=== PATIENT | female | born 1980 | race Caucasian/White ===

== ENCOUNTER 2017-11-18 15:15 | Emergency (ER) | payer OTHER ==
[~2017-11-18] VITALS: Ht 167.6 cm; Wt 71.7 kg
[2017-11-18 15:36] VITALS: TEMP 36.8; Ht 167.6 cm; Wt 71.7 kg
[2017-11-18] MEDS ORDERED: [UNRECOGNIZED DRUG - REMARK] PO (15:51)
[2017-11-18 15:53] LABS: BASO % 1.1 %; EOS ABS # 0.09 K/uL (0-0.5); HEMATOCRIT 39.2 % (37-47); IG# 0.02 K/uL (0.00-0.02); LYMPH % 26.1 %; LYMPH ABS # 2.39 K/uL (1.2-3.4); MEAN CELL VOLUME 88.1 fL (80-100); MEAN CORPUSCULAR HEMOGLOBIN 29.2 pg (25-34); MEAN CORPUSCULAR HGB CONC 33.2 g/dl (32-36); MEAN PLATELET VOLUME 9.6 fL (7.4-10.4); MONO % 7.3 %; MONO ABS # 0.67 K/uL (0.11-0.59); NEUT % 64.3 %; PLATELET COUNT 247 K/uL (130-400); RED CELL DISTRIBUTION WIDTH CV 14.8 % (11.5-14.5); RED CELL DISTRIBUTION WIDTH SD 47.6 fL (36.4-46.3); WHITE BLOOD COUNT 9.17 K/uL (4.8-10.8)
--- NOTE | 2017-11-18 15:59 | DIAGNOSTIC IMAGING REPORT ---
CHEST ONE VIEW PORTABLE CLINICAL HISTORY: CHEST PAIN COMPARISON STUDY: No previous studies for comparison. FINDINGS: Lung volumes are normal. Lungs are clear. There is no pneumothorax or pleural effusion. There is no evidence of pneumomediastinum. Cardiomediastinal silhouette is normal. Pulmonary vascularity is normal. IMPRESSION: No acute cardiopulmonary findings. Electronically signed by: Trever Keane M.D. 11/18/2017 3:58 PM Dictated Date/Time: 11/18/2017 3:57 PM
[2017-11-18 16:02] LABS: ALBUMIN 4.4 gm/dl (3.4-5.0); CALCIUM 8.8 mg/dl (8.5-10.1); CREATININE 0.93 mg/dl (0.60-1.20); POTASSIUM 3.6 mmol/L (3.5-5.1)
[2017-11-18 16:05] LABS: TOTAL PROTEIN 8.4 gm/dl (6.4-8.2)
[2017-11-18 17:54] VITALS: BP 112/63; PULSE 71; O2SAT 99
--- NOTE | 2017-11-18 23:45 | EMERGENCY ROOM VISIT NOTE ---
ED Visit Note First contact with patient: 15:29 Chief Complaint: Chest pain. History of Present Illness: Ms. Funes is a 37 year-old white female who ambulates into the ED complaining of chest pain. Historically patient reports she has no personal or family history heart disease. She denies risk factors for heart disease. She also denies any previous gastrointestinal disorders. Patient reports a gradual onset of left sternal chest pain that started approximately 2-3 hours ago. Since that time the pain has waxed and waned in intensity. The chest pain is currently described as achy sensation. She rates her discomfort 4/10. The pain is radiating down the left sternal border and into the epigastric area and into the subscapular area. When the pain reaches the abdomen and subscapular area become sharp in nature and she rates this discomfort 7/10. She has not identified any aggravating or alleviating factors related to either pain. She does report this pain started when she was eating; she reports a similar episode of pain a few weeks ago that was short-lived only approximately 10 minutes long and self resolved. She has not identified any aggravating or alleviating factors related to this discomfort. She has not taken any medication for this discomfort prior to arrival at the hospital. She denies fevers, chills, sweats, skin eruptions, skin color changes, upper respiratory tract symptoms, wheezing, cough shortness of breath, orthopnea, dependent edema, previous clots, claudication, cramping, recent surgery/ inactivity/extended travel, abdominal pain, nausea, vomiting, diarrhea, constipation, rectal bleeding, black/tarry stools, urinary symptoms, back/flank pain. Review of Systems: As noted above in history of present illness. All body systems were reviewed and found to be negative as noted above. Past Medical History: Patient denies. Current Medications: Patient denies. Allergies to Medications: Patient denies. Social History: Patient is currently employed; she lives with her family and feels safe in her home environment; she denies tobacco use. Physical Examination: Vital Signs: Date Time Temp Pulse Resp B/P (MAP) Pulse Ox O2 Delivery O2 Flow Rate FiO2 11/18/17 17:54 71 18 112/63 99 11/18/17 16:19 73 11/18/17 15:36 36.8 77 20 150/75 100 Room Air 11/18/17 15:33 36.8 77 20 11/18/17 15:28 56 18 150/75 100 Room Air GENERAL: 37-year-old female in mild moderate distress due to pain, nontoxic- appearing, afebrile and hemodynamically stable. NEUROLOGICAL: Awake, alert and oriented to person, place and time. Answering questions appropriately and following commands. Normal gait. Good hand eye coordination. SKIN: Warm, dry and pink. No soft tissue eruptions or trauma noted. HEENT: Atraumatic and normocephalic. PERRLA. Sclera white and conjunctiva pink. Oral cavity moist and pink. Pharynx is nonerythematous or edematous. Speech normal. No lymphadenopathy. Trachea midline. No jugular venous distention. No carotid bruits. BACK: No tenderness over the bony spine. No CVA tenderness. THORAX: Lungs sounds are clear to auscultation and equal bilaterally with symmetrical chest wall. No wheezing, rales or rhonchi. No crepitus, tenderness , subcutaneous air or deformities noted. HEART: Regular rate and rhythm. No gallops, rubs or murmurs are appreciated. No lifts, heaves or thrills. PMI is not displaced. ABDOMEN: Flat, soft and nontender. Positive bowel sounds in all quadrants. No guarding, rigidity or organomegaly. EXTREMITIES: Moves all extremities well on command and with purpose. All distal neurovascular statuses are intact and equal bilaterally. No dependent edema or calf tenderness/cords. ED Course: Patient is assessed as noted above. Since medication list was reviewed. Laboratory Testing: Test 11/18/17 15:36 11/18/17 15:52 11/18/17 16:30 11/18/17 17:12 Range/Units White Blood Count 9.17 4.8-10.8 K/uL Red Blood Count 4.45 4.2-5.4 M/uL Hemoglobin 13.0 12.0-16.0 g/dL Hematocrit 39.2 37-47 % Mean Corpuscular Volume 88.1 80-100 fL Mean Corpuscular Hemoglobin 29.2 25-34 pg Mean Corpuscular Hemoglobin Concent 33.2 32-36 g/dl Platelet Count 247 130-400 K/uL Mean Platelet Volume 9.6 7.4-10.4 fL Neutrophils (%) (Auto) 64.3 % Lymphocytes (%) (Auto) 26.1 % Monocytes (%) (Auto) 7.3 % Eosinophils (%) (Auto) 1.0 % Basophils (%) (Auto) 1.1 % Neutrophils # (Auto) 5.90 1.4-6.5 K/uL Lymphocytes # (Auto) 2.39 1.2-3.4 K/uL Monocytes # (Auto) 0.67 0.11-0.59 K/uL Eosinophils # (Auto) 0.09 0-0.5 K/uL Basophils # (Auto) 0.10 0-0.2 K/uL RDW Standard Deviation 47.6 36.4-46.3 fL RDW Coefficient of Variation 14.8 11.5-14.5 % Immature Granulocyte % (Auto) 0.2 % Immature Granulocyte # (Auto) 0.02 0.00-0.02 K/uL Sodium Level 135 136-145 mmol/L Potassium Level 3.6 3.5-5.1 mmol/L Chloride Level 103 98-107 mmol/L Carbon Dioxide Level 27 21-32 mmol/L Anion Gap 5.0 3-11 mmol/L Blood Urea Nitrogen 18 7-18 mg/dl Creatinine 0.93 0.60-1.20 mg/dl Est Creatinine Clear Calc Drug Dose 84.8 ml/min Estimated GFR () 91.6 Estimated GFR (Non- 79.1 BUN/Creatinine Ratio 19.5 10-20 Random Glucose 93 70-99 mg/dl Calcium Level 8.8 8.5-10.1 mg/dl Total Bilirubin 0.4 0.2-1 mg/dl Direct Bilirubin 0.1 0-0.2 mg/dl Aspartate Amino Transf (AST/SGOT) 17 15-37 U/L Alanine Aminotransferase (ALT/SGPT) 25 12-78 U/L Alkaline Phosphatase 58 45-117 U/L Total Protein 8.4 6.4-8.2 gm/dl Albumin 4.4 3.4-5.0 gm/dl Lipase 245 73-393 U/L Bedside D-Dimer 259 0-450 ng/mlFEU Bedside Troponin I < 0.030 < 0.030 0-0.045 ng/ml Urine Color YELLOW Urine Appearance CLEAR CLEAR Urine pH 6.5 4.5-7.5 Urine Specific [place] 1.009 1.000-1.030 Urine Protein NEG NEG Urine Glucose (UA) NEG NEG Urine Ketones NEG NEG Urine Occult Blood NEG NEG Urine Nitrite NEG NEG Urine Bilirubin NEG NEG Urine Urobilinogen NEG NEG Urine Leukocyte Esterase TRACE NEG Urine WBC (Auto) 1-5 0-5 /hpf Urine RBC (Auto) 0-4 0-4 /hpf Urine Hyaline Casts (Auto) 0 0-5 /lpf Urine Epithelial Cells (Auto) 20-30 0-5 /lpf Urine Bacteria (Auto) NEG NEG Chest X-Ray: Was read by myself and the radiologist showing no acute infiltrates , effusions or pneumothorax. Normal heart silhouette and bony anatomy. EKG #1:1527: Normal sinus rhythm with a ventricular rate of 71 bpm. Normal axis , intervals and complexes. No acute ischemic changes. No previous to compare. There was some mild artifact present on the EKG. EKG #2:1651: Normal sinus rhythm with a ventricular rate of 67 bpm. Normal axis , intervals and complexes. No acute ST changes indicating ischemia. This was compared to previous and had resolution of the patient's artifact but no acute changes were noted. An IV lock was initiated and patient was placed on a quality assurance monitor. Patient was reassessed multiple times during her stay in the emergency department. Patient's case was reviewed with Dr. Jay; we agreed on diagnostic approach, treatment, disposition and plan. Patient was educated about today's findings and instructed on her treatment plan ; she verbalized understanding and agreement with this plan. Clinical Impression: Noncardiac chest pain. Decision-Making: Initially my differential diagnosis I considered acute coronary syndrome, pulmonary embolism, pneumothorax, pneumonia, gastric reflux, pancreatitis, and other causes. Disposition: Patient discharged home in stable condition accompanied by her ; prior to departure she was reassessed and subjectively reported she was pain-free. Plan: Patient was encouraged to use 650 mg of acetaminophen every 6 hours as needed for pain and avoid NSAIDs. Patient was encouraged to follow-up with family physician for recheck. Patient is encouraged return ED for worsening pain, vomiting, shortness of breath, fevers or any new/concerning symptoms.
== END 2017-11-18 17:55 | disposition home or self-care (01) ==
LOC: C.EDB 15:18
DX: R07.89 Other chest pain (principal)